=== PATIENT | male | born 1965 | race Caucasian/White ===

== ENCOUNTER → 2017-07-17 | Outpatient (CLI) | payer OTHER ==
[~2017-07-17] MED LIST: AMLODIPINE BESYL5 MG PO; B12,B-12,B 12500 MC1 PO; BACTRIM 400 MG-1 TAB PO; CANE; CIPROFLOXACIN500 MG PO; CYCLOBENZAPRINE5 M3 PO; CYMBALTA30 MG PO; DEPAKOTE DR500 MG PO; DOXYCYCLINE150 MG PO; FLAGYL500 MG PO; NEURONTIN300 MG PO; NORVASC2.5 MG PO; NOVAPLUS V0.09 MG/Ac INH; PREDNISONE20 M1 PO; PROPRANOLOL HCL20 M1 PO; PROVENTIL0.09 MG/A1 INH; ZESTRIL20 MG PO
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
--- NOTE | ~2017-07-17 | SLPPOC ---
[place], [place] [employer] PLAN OF CARE NAME: GABBIE MONIQUE UNIT #: [id number] ROOM: DOCTOR: ESTEVAN WANG Speech Language Pathology Plan of Care Page 1 1 (Initial Evaluation) of Patient Name: GABBIE MONIQUE Date: 07/17/2017 10:21 AM : 1965 SOC Date: 07/17/2017 [facility]: [facility] Provider #: [id number] Treating Clinician: KHLOE Hernandez-CARBIDE GRINDER Referring Physician: ESTEVAN WANG Visits From SOC: 1 Onset Date Description Code Primary Diagnosis: 07/17/2017 A000.00 DIAGNOSIS FROM INTERFACE NOT FOUND IN [facility] TABLE Subjective Comments: Initial evaluation created to initiate the electronic medical record. Please see [employer] for details. Initial Level Goals Functional Limitation Reporting Swallowing G8996 - Swallowing functional limitation, current status at therapy episode outset and at reporting intervals Current Status: CH - 0 percent impaired, limited or restricted G8997 - Swallowing functional limitation, projected goal status, at therapy episode outset, at reporting intervals, and at discharge or to end reporting Goal Status: CH - 0 percent impaired, limited or restricted G8998 - Swallowing functional limitation, discharge status, at discharge from therapy or to end reporting Discharge Status: CH - 0 percent impaired, limited or restricted 07/17/2017 10:23:08 AM ESTEVAN WANG Date/Time KHLOE Hernandez-GERALDO Date I certify the need for these services furnished under this plan of treatment while under my care. State License #: [id number] CM:SLPPOC 1028 1028 [facility]
--- NOTE | ~2017-07-17 | SLPIE ---
[place], [place] IMAGER INITIAL EVALUATION NAME: GABBIE MONIQUE UNIT #: [id number] ROOM: DOCTOR: ESTEVAN WANG Speech Language Pathology Initial Evaluation Page 1 1 of Patient Name: GABBIE MONIQUE Date: 07/17/2017 10:21 AM : 1965 SOC Date: 07/17/2017 Provider: [facility] Provider #: [id number] Treating Clinician: KHLOE Hernandez-IMAGER Referring Physician: ESTEVAN WANG Patient Information Address: [facility] [address] [facility] Physician: ESTEVAN WANG Physician #: [facility], [facility], Zip: [place], [place] [address] Occupation: Unknown # of Approved Visits: 0 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 Please see [employer] for details. Clinical Findings Functional Goals Functional Limitation Reporting Swallowing G8996 - Swallowing functional limitation, current status at therapy episode outset and at reporting intervals Current Status: CH - 0 percent impaired, limited or restricted G8997 - Swallowing functional limitation, projected goal status, at therapy episode outset, at reporting intervals, and at discharge or to end reporting Goal Status: CH - 0 percent impaired, limited or restricted G8998 - Swallowing functional limitation, discharge status, at discharge from therapy or to end reporting Discharge Status: CH - 0 percent impaired, limited or restricted 07/17/2017 10:23:08 AM KHLOE Hernandez-IMAGER Date/Time [place], [place] IMAGER INITIAL EVALUATION NAME: GABBIE MONIQUE UNIT #: [id number] ROOM: DOCTOR: ESTEVAN WANG [facility] License #: [id number] CM:SLPBRIDGER [id number] [facility]
--- NOTE | ~2017-07-17 | SLPPN ---
[place], [place] [employer] PROGRESS NOTE NAME: GABBIE MONIQUE UNIT #: [id number] ROOM: DOCTOR: ESTEVAN WANG Speech Language Pathology Treatment Note Page 1 1 of Patient Name: GABBIE MONIQUE Date: 07/17/2017 10:23 AM : 1965 SOC Date: 07/17/2017 Provider: [facility] Provider #: [id number] Treating Clinician: KHLOE Hernandez-STRIPPER [place]QUER Referring Physician: ESTEVAN WANG Onset Date Description Code Primary Diagnosis: 07/17/2017 A000.00 DIAGNOSIS FROM INTERFACE NOT FOUND IN [facility] TABLE Time In: 08:00 AM Time Out: 09:00 AM [employer] Interventions and CPT Codes Consisted of: CPT Code Modifiers Minutes Units MOTION FLUOROSCOPY/SWALLOW 92036 60 1 Total Minutes: 60 Total Timed Minutes: 0 Total Untimed Minutes: 60 Total Units: 1 Total Timed Units: 0 Total Untimed Units: 1 07/17/2017 10:24:11 AM KHLOE Hernandez-GERALDO Date/Time State License #: [id number] CM:DAVIS 1028 1028 [facility]
[2017-07-18 20:09] LABS: HEPATITIS C QNT HCV Not Detected IU/mL (.)
== END | disposition home or self-care (01) ==
LOC: RAD/SH 08:00 → LAB 08:21
PROVIDERS: Nurse Practitioner
DX: Z51.89 Encounter for other specified aftercare (principal); B19.20 Unspecified viral hepatitis C without hepatic coma; R13.10 Dysphagia, unspecified

== ENCOUNTER → 2017-09-29 | Outpatient (CLI) | payer OTHER ==
[2017-09-29 09:08] LABS: CHOLESTEROL 163 mg/dL (<200); TRIGLYCERIDES 388 mg/dl (<150); VLDL CHOLESTEROL 78 mg/dL (6-40)
[2017-09-29 09:12] LABS: HDL CHOLESTEROL 44 mg/dl (40-60); LDL CHOLESTEROL 41 mg/dL (9-159)
== END | disposition home or self-care (01) ==
LOC: LAB 07:51
PROVIDERS: Psychiatry & Neurology Neurology
DX: I67.9 Cerebrovascular disease, unspecified (principal); R79.89 Other specified abnormal findings of blood chemistry